=== PATIENT | male | born 1995 | race Caucasian/White ===

== ENCOUNTER 2023-10-17 08:02 | Emergency (ER) | payer OTHER ==
[~2023-10-17] VITALS: Ht 172.7 cm; Wt 61.2 kg
[2023-10-17 08:10] VITALS: BP 114/70; PULSE 72; RESP 20; TEMP 97.3; O2SAT 99
[2023-10-17] MEDS ORDERED: HYD1C TP (08:35)
[2023-10-17 08:51] VITALS: BP 114/70; PULSE 72; RESP 20; TEMP 97.3; O2SAT 99
[2023-10-17] MEDS: ONDANSETRON 4 MG ODT PO ONE (09:05)
== END 2023-10-17 08:50 | disposition home or self-care (01) ==
LOC: MED 08:02
DX: S40.861A Insect bite (nonvenomous) of right upper arm, initial encounter (principal); Z79.899 Other long term (current) drug therapy; W57.XXXA Bitten or stung by nonvenomous insect and other nonvenomous arthropods, initial encounter; Y92.89 Other specified places as the place of occurrence of the external cause; Y93.89 Activity, other specified; Y99.8 Other external cause status
CPT/HCPCS: 99283